=== PATIENT | female | born 1980 | race African-American/Black ===

== ENCOUNTER 2017-03-30 15:30 | Emergency (ER) | payer OTHER ==
[~2017-03-30] VITALS: Ht 165.1 cm; Wt 59.0 kg
[2017-03-30 15:42] VITALS: BP 119/69
--- NOTE | 2017-03-30 15:54 | ED.ADGEN ---
Past Medical History Past Medical History: Fibromyalgia, Seizure, Other Additional Past Medical Histor: VERTIGO, ECTOPIC Past Surgical History: Tonsillectomy Additional Past Surgical Histo: LEEP, adnoidectomy Alcohol Use: None Drug Use: None Adult General Chief Complaint Chief Complaint: HEADACHE HPI HPI Patient is a 37 year old woman, history of vertigo, fibromyalgia, seasonal allergies, who presents to the emergency department with a complaint of several days of nausea, diarrhea, occasional vomiting, nasal congestion, sore throat, nonproductive cough, ear pain, occasional "crusty stuff" from her eyes when she wakes up in the morning and headache. Patient states that she began one episode of diarrhea, then developed the other symptoms concurrently. She states that she has been using Flonase at home over the past several days, and took ibuprofen this morning without relief. She denies any vertiginous type symptoms , any weakness, numbness or tingling, any injuries, any fevers or chills. Also complaining of mild low back pain that occasionally radiates into her legs, but no difficulties with bowel or bladder control, states she has experienced similar symptoms with sciatica previously. Denies any sick contacts, any travel or exposure. Afebrile in the emergency department, last use ibuprofen about 3 hours ago. Review of Systems Review of Systems Constitutional: Denies fever or chills. [] Eyes: Denies change in visual acuity. [] HENT: Nasal congestion, sore throat, bilateral ear pain, right greater than left. Respiratory: Cough that is nonproductive, no shortness of breath. Cardiovascular: Denies chest pain or edema. [] GI: Denies abdominal pain, nausea, occasional vomiting, no bloody stools, episodic loose brown stool. [] : Denies dysuria. [] Musculoskeletal: Low back pain, no joint pain. Integument: Denies rash. [] Neurologic: Denies focal weakness or sensory changes. [] Headache. Endocrine: Denies polyuria or polydipsia. [] Lymphatic: Denies swollen glands. [] Psychiatric: Denies depression or anxiety. [] Current Medications Current Medications Current Medications Medications (Trade) Dose Ordered Sig/Kevin Start Time Stop Time Status Last Admin Dose Admin Benzonatate (Tessalon Perle) 100 mg 1X ONCE 03/30/17 16:00 03/30/17 16:01 DC 03/30/17 16:03 100 MG Ondansetron HCl (Zofran Odt) 4 mg 1X ONCE 03/30/17 16:00 03/30/17 16:01 DC 03/30/17 16:03 4 MG Allergies Allergies Allergies Coded Allergies Type Severity Reaction Last Updated Verified Penicillins Allergy Severe Rash 07/30/14 Yes codeine Allergy Intermediate rash, hallucinate 07/30/14 Yes ketorolac Allergy Intermediate 07/31/14 No morphine Allergy Intermediate rash, hallucinate 07/30/14 Yes prochlorperazine edisylate Allergy Intermediate anxiety 07/30/14 Yes prochlorperazine maleate Allergy Intermediate anxiety 07/30/14 Yes Physical Exam Physical Exam Constitutional: Well developed, well nourished, no acute distress, non-toxic appearance. [] HENT: Normocephalic, atraumatic, mild fluid levels noted behind bilateral TMs, there is no bulging, no drainage, external canal is normal, oropharynx moist, no oral exudates, patient was swelling of the turbinates bilaterally with white mucous noted, oropharynx is injected, no exudates identified. Eyes: PERRLA, EOMI, conjunctiva normal, no discharge. [] Neck: Normal range of motion, no tenderness, supple, no stridor. [] Cardiovascular:Heart rate regular rhythm, no murmur, S1, S2, no rubs or gallops. [] Lungs & Thorax: Bilateral breath sounds clear to auscultation , no wheezing, rhonchi, rales. No chest wall crepitus or tenderness. [] Abdomen: Bowel sounds normal, soft, no rebound, rigidity, no guarding, no tenderness, no masses, no pulsatile masses. [] Skin: Warm, dry, no erythema, no rash. [] Back: No tenderness, no CVA tenderness. [] Extremities: No tenderness, no cyanosis, no clubbing, ROM intact, no edema. Negative Homans sign. [] Neurologic: Alert and oriented X 3, normal motor function, normal sensory function, no focal deficits noted. [] Psychologic: Affect normal, judgement normal, mood normal. [] Current Patient Data Vital Signs Vital Signs Date Time Temp Pulse Resp B/P (MAP) Pulse Ox O2 Delivery O2 Flow Rate FiO2 03/30/17 15:42 98.4 95 18 119/69 (86) 100 Room Air 98.4 Lab Values Laboratory Tests Test 03/30/17 15:38 Urine Collection Type Unknown Urine Color Yellow Urine Clarity Clear Urine pH 6.5 Urine Specific [place] 1.015 Urine Protein Negative mg/dL (NEG-TRACE) Urine Glucose (UA) Negative mg/dL (NEG) Urine Ketones (Stick) Negative mg/dL (NEG) Urine Blood Negative (NEG) Urine Nitrite Negative (NEG) Urine Bilirubin Negative (NEG) Urine Urobilinogen Dipstick 0.2 mg/dL (0.2 mg/dL) Urine Leukocyte Esterase Negative (NEG) Urine RBC Occ /HPF (0-2) Urine WBC 0 /HPF (0-4) Urine Squamous Epithelial Cells Few /LPF Urine Bacteria Few /HPF (0-FEW) Urine Mucus Mod /LPF Urine Test Negative (NEG) EKG EKG Not indicated. [] Radiology/Procedures Radiology/Procedures Not indicated. [] Course & Med Decision Making Course & Med Decision Making Pertinent Labs and Imaging studies reviewed. (See chart for details) Patient's history and examination is consistent with a viral illness. I did discuss this with patient, she is using Flonase and ibuprofen at home, encouraged her to continue use of both these medications, will administer Tessalon Perle and Zofran in the ED, patient also states that she does also have some constipation, importance of hydration and stay well-hydrated discussed. Pressey test negative, UA unremarkable, patient received a dose of Zofran and Tessalon Perle in the ED. Use of loratadine at bedtime, Tessalon Perle, Zofran as needed discussed, patient is agreeable this plan. She was a primary care provider with which she can follow-up is as a persist. We also discussed concerning symptoms that prompt return to the ED. Patient voiced understanding and agreement, discharged with prescription for Zofran, Tessalon Perle, and provided in, with plan and precautions as above. Dragon Disclaimer Dragon Disclaimer This electronic medical record was generated, in whole or in part, using a voice recognition dictation system. Departure Impression: Primary Impression: Viral infection Disposition: HOME, SELF-CARE Condition: IMPROVED Scripts Ondansetron Hcl (ZOFRAN) 4 Mg Tablet 1 TAB PO Q8HRS Y for NAUSEA, #15 TAB Prov: DINAA CORTEZ DO 03/30/17 Loratadine (LORATADINE) 10 Mg Tablet 1 TAB PO QHS Y for COUGH, #15 TAB 0 Refills Prov: DIANA CORTEZ DO 03/30/17 Benzonatate (TESSALON PERLE) 100 Mg Capsule 100 MG PO TID Y for COUGH, #12 CAP Prov: DIANA CORTEZ DO 03/30/17 DIANA CORTEZ DO Mar 30, 2017 15:54
[2017-03-30 15:56] LABS: BILIRUBIN,URINE NEGATIVE (NEG); GLUCOSE,URINE NEGATIVE (NEG); NITRITE,URINE NEGATIVE (NEG); PH,URINE 6.5; PROTEIN,URINE NEGATIVE (NEG-TRACE); UROBILINOGEN,URINE 0.2 mg/dL (0.2 mg/dL)
[2017-03-30] MEDS ORDERED: ONDANSETRON ODT 4 MG TAB.RAPDIS. PO ONE (16:00)
[2017-03-30] MEDS ORDERED: BENZONATATE 100 MG CAPSULE. PO ONE (16:00)
[2017-03-30 16:01] LABS: BACTERIA,URINE FEW /HPF (0-FEW); RBC,URINE OCC /HPF (0-2); SQUAMOUS EPITHELIAL CELL,UR FEW /LPF; WBC,URINE 0 /HPF (0-4)
[2017-03-30 16:10] LABS: NEG OBC UR NEG; POS OBC UR POS
[2017-03-30] MEDS ORDERED: ONDA4TAB7 PO (16:20)
[2017-03-30] MEDS ORDERED: LORA10TA3 PO (16:20)
[2017-03-30] MEDS ORDERED: BENZ100C PO (16:20)
== END 2017-03-30 16:45 | disposition home or self-care (01) ==
LOC: ER 15:30
DX: B34.9 Viral infection, unspecified (principal); R51 Headache; H92.03 Otalgia, bilateral; M54.5 Low back pain; M79.7 Fibromyalgia; Z88.0 Allergy status to penicillin; Z79.899 Other long term (current) drug therapy; Z88.5 Allergy status to narcotic agent; Z88.8 Allergy status to other drugs, medicaments and biological substances
CPT/HCPCS: 81001; 81025; 84703; 99284; Q0162

== ENCOUNTER 2018-08-11 16:43 | Emergency (ER) | payer SELFPAY ==
[~2018-08-11] VITALS: Ht 154.9 cm; Wt 68.0 kg
[~2018-08-11 16:43] MED LIST: BENZ100C PO; LORA10TA3 PO; ONDA4TAB7 PO
--- NOTE | 2018-08-11 17:22 | EKG ---
[facility] [address] [place] [address] Test Date: 2018-08-11 Test Time: 17:08:15 Pat Name: CORA BURRELL Department: Room: Gender: F Template Inspector: : 1980 Requested By: NASREEN RODRIGUEZ Order Number: [id number] Reading MD: Harvinder Narayan Measurements Intervals [place] Rate: 78 P: 48 MT: 194 QRS: 27 QRSD: 76 T: 17 QT: 370 QTc: 425 Interpretive Statements SINUS RHYTHM NORMAL ECG Electronically Signed On 08-12-2018 14:30:30 CLEAN ROOM ASSEMBLER by Harvinder Narayan
[2018-08-11] MEDS: IV NORMAL SALINE 1000ML BAG 1,000 ML IV SCH (17:32)
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
[2018-08-11 17:52] LABS: CALCIUM 9.3 mg/dL (8.5-10.1); CREATININE 0.8 mg/dL (0.6-1.0); GFR 98.2; POTASSIUM 3.8 mmol/L (3.5-5.1)
[2018-08-11 17:59] LABS: ALBUMIN 3.9 g/dL (3.4-5.0); TOTAL BILIRUBIN 0.2 mg/dL (0.2-1.0); TOTAL PROTEIN 7.8 g/dL (6.4-8.2)
[2018-08-11 18:06] LABS: BASO % 0 % (0-3); EOS # 0.3 x10^3/uL (0.0-0.7); EOS % 3 % (0-3); HEMOGLOBIN 13.4 g/dL (12.0-15.5); LYMPH # 3.3 x10^3/uL (1.0-4.8); LYMPH % 35 % (24-48); MEAN CORPUSCULAR HEMOGLOBIN 32 pg (25-35); MEAN CORPUSCULAR HGB CONC 35 g/dL (31-37); MEAN CORPUSCULAR VOLUME 91 fL (79-100); MONO # 0.5 x10^3/uL (0.0-1.1); MONO % 5 % (0-9); NEUT # 5.2 x10^3uL (1.8-7.7); NEUT % 56 % (31-73); PLATELET COUNT 313 x10^3/uL (140-400); RED BLOOD COUNT 4.27 x10^6/uL (3.50-5.40); RED CELL DISTRIBUTION WIDTH 13.6 % (11.5-14.5); WHITE BLOOD COUNT 9.3 x10^3/uL (4.0-11.0)
[2018-08-11] MEDS: fentaNYL PF VIAL 100 MCG/2 ML VIAL IV ONE (18:57)
[2018-08-11] MEDS: ORPHENADRINE CITRATE 60 MG/2 ML VIAL. IV ONE (19:17)
[2018-08-11] MEDS ORDERED: TRAM50TA PO (19:29)
[2018-08-11] MEDS ORDERED: ORPH100T PO (19:29)
[2018-08-11] MEDS ORDERED: DICL50TA4 PO (19:29)
[2018-08-11 19:30] VITALS: BP 120/72
--- NOTE | 2018-08-11 19:39 | RAD ---
PORTABLE CHEST 1V dated 08/11/2018 6:27 PM. Comparison: None. Clinical Indication: ER PATIENT. ATRAUMATIC CHEST PAIN UPON INSPIRATION. PAIN BETWEEN THE SHOULDER BLADES. DECREASED RANGE OF OMTION OF UPPER EXTREMITIES. NO PRIORS. Findings: Single upright portable exam performed. Heart and mediastinal contours are within normal limits. Lungs are clear without focal consolidation. Vascular interstitium within normal limits. No pleural effusion or pneumothorax. Impression: Negative portable chest. Electronically signed by: Jeronimo Stephens MD (08/11/2018 7:35 PM) [facility]
--- NOTE | 2018-08-11 19:39 | RAD ---
3 views thoracic spine dated 08/11/2018. No comparison available. Clinical data indication: Pain after injury. FINDINGS: 3 views thoracic spine show normal sagittal alignment. Vertebral body heights are maintained. No paraspinous soft tissue abnormality. IMPRESSION: No acute radiographic abnormality. Electronically signed by: Jeronimo Stephens MD (08/11/2018 7:36 PM) [facility]
== END 2018-08-11 19:50 | disposition home or self-care (01) ==
LOC: ER 16:43
DX: M54.6 Pain in thoracic spine (principal); M62.830 Muscle spasm of back; R07.89 Other chest pain; Z90.89 Acquired absence of other organs; Z88.0 Allergy status to penicillin; Z88.5 Allergy status to narcotic agent; Z88.8 Allergy status to other drugs, medicaments and biological substances
CPT/HCPCS: 36415; 71045; 72072; 80053; 81025; 83735; 85025; 85379; 93005; 96374; 96375; 99285; J2360; J3010; J7030

== ENCOUNTER 2019-07-13 23:33 | Emergency (ER) | payer SELFPAY ==
[~2019-07-13] VITALS: Ht 154.9 cm; Wt 68.0 kg
[~2019-07-13 23:33] MED LIST changes: +DICL50TA4 PO; +ORPH100T PO; +TRAM50TA PO
[2019-07-14 00:23] VITALS: BP 112/71
--- NOTE | 2019-07-14 00:54 | PHYS DOC ---
Past Medical History Past Medical History: Fibromyalgia, Seizure, Other Additional Past Medical Histor: VERTIGO, ECTOPIC Past Surgical History: Tonsillectomy Additional Past Surgical Histo: LEEP, adnoidectomy Alcohol Use: None Drug Use: None Adult General Chief Complaint Chief Complaint: COUGH HPI HPI 39-year-old female presents to the emergency place or chills, bodyaches, cough, headache, hoarse voice, sore throat. She states symptoms been ongoing since Wednesday. She states she's used TheraFlu, ibuprofen without relief. Everone. N onproductive cough. Nothing makes her symptoms worse, nothing major symptoms better. She denies any abdominal pain, nausea, vomiting. All other ROS negative unless documented in HPI Review of Systems Review of Systems See Above Allergies Allergies Allergies Coded Allergies Type Severity Reaction Last Updated Verified Penicillins Allergy Severe Rash 07/30/14 Yes codeine Allergy Intermediate rash, hallucinate 07/30/14 Yes ketorolac Allergy Intermediate 07/31/14 No morphine Allergy Intermediate rash, hallucinate 07/30/14 Yes prochlorperazine edisylate Allergy Intermediate anxiety 07/30/14 Yes prochlorperazine maleate Allergy Intermediate anxiety 07/30/14 Yes Physical Exam Physical Exam See Above Constitutional: Well developed, well nourished, no acute distress, non-toxic appearance. [] HENT: Normocephalic, atraumatic, bilateral external ears normal, oropharynx moist/red, no oral exudates, nose normal. [] Eyes: PERRLA, EOMI, conjunctiva normal, no discharge. [] Neck: Normal range of motion, no tenderness, supple, no stridor. [] Cardiovascular:Heart rate regular rhythm, no murmur [] Lungs & Thorax: Bilateral breath sounds clear to auscultation [] Abdomen: Bowel sounds normal, soft, no tenderness, no masses, no pulsatile ma sses. [] Skin: Warm, dry, no erythema, no rash. [] Extremities: No tenderness, no cyanosis, no clubbing, ROM intact, no edema. [] Neurologic: Alert and oriented X 3, no focal deficits noted. [] Psychologic: Affect normal, judgement normal, mood normal. [] Current Patient Data Vital Signs Vital Signs Date Time Temp Pulse Resp B/P (MAP) Pulse Ox O2 Delivery O2 Flow Rate FiO2 07/14/19 00:23 98.9 70 14 112/71 (85) 98 Room Air 98.9 EKG EKG [] Radiology/Procedures Radiology/Procedures [] Course & Med Decision Making Course & Med Decision Making Pertinent Labs and Imaging studies reviewed. (See chart for details) []39-year-old female presents to the emergency place or chills, bodyaches, cough, headache, hoarse voice, sore throat. She states symptoms been ongoing since Wednesday. She states she's used TheraFlu, ibuprofen without relief. Everone. Nonproductive cough. Nothing makes her symptoms worse, nothing major symptoms better. She denies any abdominal pain, nausea, vomiting. Discussed with patient, plans to use [id number] medications, no plans for any antibiotic therapy at this time this is likely viral in nature. Dragon Disclaimer Dragon Disclaimer This electronic medical record was generated, in whole or in part, using a voice recognition dictation system. Departure Departure Impression: Primary Impression: Congestion of nasal sinus Additional Impression: Cough Disposition: 01 HOME, SELF-CARE Condition: STABLE Referrals: NO PCP (PCP) Patient Instructions: Upper Respiratory Infection, Adult, [id number] Additional Instructions: Recommend follow up with PCP 3 - 5 days Return to the ER with worsening symptoms, intractable pain, fever, altered mental status Tylenol/Motrin as needed for pain No antibiotics at this time likely all viral in nature Problem Qualifiers ANJANA ROY MD Jul 14, 2019 00:54
== END 2019-07-14 01:01 | disposition home or self-care (01) ==
LOC: ER 23:33
DX: R09.81 Nasal congestion (principal); R05 Cough; R51 Headache; R49.0 Dysphonia; J02.9 Acute pharyngitis, unspecified; Z90.89 Acquired absence of other organs; Z88.0 Allergy status to penicillin; Z88.5 Allergy status to narcotic agent; Z88.8 Allergy status to other drugs, medicaments and biological substances
CPT/HCPCS: 99281

== ENCOUNTER 2019-09-28 20:23 | Emergency (ER) | payer SELFPAY ==
[~2019-09-28] VITALS: Ht 154.9 cm; Wt 74.8 kg
[2019-09-28 21:20] VITALS: BP 123/76
[2019-09-28 21:51] LABS: BILIRUBIN,URINE NEGATIVE (NEG); CLARITY,URINE CLEAR; COLOR,URINE YELLOW; NITRITE,URINE NEGATIVE (NEG); PROTEIN,URINE NEGATIVE (NEG-TRACE)
[2019-09-28 21:55] LABS: BACTERIA,URINE FEW /HPF (0-FEW); RBC,URINE OCC /HPF (0-2); SQUAMOUS EPITHELIAL CELL,UR MOD /LPF; WBC,URINE OCC /HPF (0-4)
[2019-09-28] MEDS ORDERED: ORPH100T PO (22:48)
[2019-09-28] MEDS ORDERED: IBUP-1007 PO (22:48)
--- NOTE | 2019-09-28 22:48 | PHYS DOC ---
Past Medical History Past Medical History: Fibromyalgia, Seizure, Other Additional Past Medical Histor: VERTIGO, ECTOPIC (DIANNE BOSS APRN) Past Surgical History: Tonsillectomy Additional Past Surgical Histo: LEEP, adnoidectomy (DIANNE BOSS APRN) Alcohol Use: None Drug Use: None (DIANNE BOSS APRN) Attending Signature I have participated in the care of this patient and I have reviewed and agree with all pertinent clinical information above including history, exam, and recommendations. (ANJANA ROY MD) Adult General Chief Complaint Chief Complaint: TOE PROBLEM HPI HPI Patient is a 39 year old female who presents with states that couple days ago she was walking out of a grocery store when she tripped over a metal piece that was sticking up in the doorway. States she stubbed her right fourth toe. She states that she caught herself but it dayo her whole right side. States she's been taking an old muscle relaxer and ibuprofen and using ice in Epsom salts but she still very sore on her right side. She complains of right inner knee pain, right foot pain, right hip pain. Patient rates her pain a 7 out of 10. (DIANNE BOSS APRN) Review of Systems Review of Systems Musculoskeletal: Denies back pain. Right foot, toes and hip joint pain [] All other systems were reviewed and found to be within normal limits, except as documented in this note. (DIANNE BOSS APRN) Current Medications Current Medications Current Medications Medications (Trade) Dose Ordered Sig/Kevin Start Time Stop Time Status Last Admin Dose Admin Ibuprofen (Motrin) 800 mg 1X ONCE 09/28/19 23:00 09/28/19 23:01 DC 09/28/19 23:06 800 MG (ANJANA ROY MD) Allergies Allergies Allergies Coded Allergies Type Severity Reaction Last Updated Verified Penicillins Allergy Severe Rash 07/30/14 Yes codeine Allergy Intermediate rash, hallucinate 07/30/14 Yes ketorolac Allergy Intermediate 07/31/14 No morphine Allergy Intermediate rash, hallucinate 07/30/14 Yes prochlorperazine edisylate Allergy Intermediate anxiety 07/30/14 Yes prochlorperazine maleate Allergy Intermediate anxiety 07/30/14 Yes (ANJANA ROY MD) Physical Exam Physical Exam Constitutional: Well developed, well nourished, no acute distress, non-toxic appearance. [] HENT: Normocephalic, atraumatic, bilateral external ears normal, oropharynx moist, no oral exudates, nose normal. [] Eyes: PERRLA, EOMI, conjunctiva normal, no discharge. [] Neck: Normal range of motion, no tenderness, supple, no stridor. [] Cardiovascular:Heart rate regular rhythm, no murmur [] Lungs & Thorax: Bilateral breath sounds clear to auscultation [] Abdomen: Bowel sounds normal, soft, no tenderness, no masses, no pulsatile masses. [] Skin: Warm, dry, no erythema, no rash. [] Back: No tenderness, no CVA tenderness. [] Extremities: Right 2--4 toes, right dorsal foot tenderness, no cyanosis, no clubbing, ROM intact, no edema. [] Neurologic: Alert and oriented X 3, normal motor function, normal sensory function, no focal deficits noted. [] Psychologic: Affect normal, judgement normal, mood normal. [] (DIANNE BOSS APRN) Current Patient Data Vital Signs Vital Signs Date Time Temp Pulse Resp B/P (MAP) Pulse Ox O2 Delivery O2 Flow Rate FiO2 09/28/19 21:20 98.3 85 15 123/76 (92) 98 Room Air 98.3 (ANJANA ROY MD) Lab Values Laboratory Tests Test 09/28/19 21:31 09/28/19 21:37 Urine Collection Type Unknown Urine Color Yellow Urine Clarity Clear Urine pH 6.0 Urine Specific [place] >=1.030 Urine Protein Negative mg/dL (NEG-TRACE) Urine Glucose (UA) Negative mg/dL (NEG) Urine Ketones (Stick) Negative mg/dL (NEG) Urine Blood Negative (NEG) Urine Nitrite Negative (NEG) Urine Bilirubin Negative (NEG) Urine Urobilinogen Dipstick 1.0 mg/dL (0.2 mg/dL) Urine Leukocyte Esterase Negative (NEG) Urine RBC Occ /HPF (0-2) Urine WBC Occ /HPF (0-4) Urine Squamous Epithelial Cells Mod /LPF Urine Bacteria Few /HPF (0-FEW) Urine Mucus Mod /LPF POC Urine HCG, Qualitative Hcg negative (Negative) (ANJANA ROY MD) EKG EKG [] (DIANNE BOSS APRN) Radiology/Procedures Radiology/Procedures [] (DIANNE BOSS APRN) Course & Med Decision Making Course & Med Decision Making Ambulatory with a steady gait. Alert and oriented. No deformity to the patient's right foot and right toes. Tenderness to the second through fourth toe. Tenderness to the dorsal foot. Tenderness to the right medial knee. No deformity or bruising or swelling to the knee, foot or toes. Patient states that her right hip hurts when she goes to walk. She denies any radiation of pain. States she is just very sore. Skin pink warm and dry. Pedal pulses are present. No swelling to any joints or extremities. No bruising to any joints or extremities. No laxity in any joints. Can wigle toe but it is very painful. Denies numbness or tingling, skin color changes or temperature changes. No weakness in any extr emity. Xrays read by Dr Roy as no acute findings. Patient is given a Post op shoe. (DIANNE BOSS APRN) Dragon Disclaimer Dragon Disclaimer This electronic medical record was generated, in whole or in part, using a voice recognition dictation system. (DIANNE BOSS APRN) Departure Departure Impression: Primary Impression: Foot pain, right Additional Impressions: Hip pain, right Toe pain, right Disposition: 01 HOME, SELF-CARE Condition: STABLE Referrals: NO PCP (PCP) Patient Instructions: Contusion, [id number], Muscle Strain, [id number] Additional Instructions: Follow up with primary care provider. Take medications as prescribed. Scripts Orphenadrine Citrate (ORPHENADRINE CITRATE) 100 Mg Tablet.er 1 TAB PO BID, #20 TAB Prov: DIANNE BOSS APRN 09/28/19 Ibuprofen (IBUPROFEN) 600 Mg Tablet 600 MG PO PRN Q6HRS PRN for INFLAMMATION, #20 TAB Prov: DIANNE BOSS APRN 09/28/19 Problem Qualifiers DIANNE BOSS APRN Sep 28, 2019 22:48 ANJANA ROY MD Sep 29, 2019 07:32
[2019-09-28] MEDS ORDERED: IBUPROFEN 400 MG TABLET. PO ONE (23:00)
--- NOTE | 2019-09-28 23:44 | RAD ---
Study: HIP RIGHT 2V WITH PELVIS Indication: Mechanical fall. Comparison: None. Findings: No acute fracture seen at either hip or throughout the pelvis. Alignment is maintained. No suspicious abnormality seen to involve the visualized lumbar spine. No radiographic evidence of a hip joint effusion. Impression: No acute osseous abnormality. Electronically signed by: FILEMON HUGO MD (09/28/2019 11:41 PM) [facility]
--- NOTE | 2019-09-28 23:47 | RAD ---
4 views right knee HISTORY: Pain status post fall AP lateral oblique and sunrise views The visualized osseous structures appear normal. IMPRESSION: No acute findings. End impression Three views right foot AP lateral oblique Clinical History: Comparison: None. Findings: The visualized osseous structures appear normal. Impression: No acute findings. Electronically signed by: Waqar Holcomb III, MD (09/28/2019 11:44 PM) [facility]
--- NOTE | 2019-09-28 23:47 | RAD ---
4 views right knee HISTORY: Pain status post fall AP lateral oblique and sunrise views The visualized osseous structures appear normal. IMPRESSION: No acute findings. End impression Three views right foot AP lateral oblique Clinical History: Comparison: None. Findings: The visualized osseous structures appear normal. Impression: No acute findings. Electronically signed by: Waqar Holcomb III, MD (09/28/2019 11:44 PM) [facility]
== END 2019-09-28 23:17 | disposition home or self-care (01) ==
LOC: ER 20:23
DX: M79.671 Pain in right foot (principal); M25.551 Pain in right hip; M79.674 Pain in right toe(s); M25.561 Pain in right knee; M79.7 Fibromyalgia; Z90.89 Acquired absence of other organs; Z98.890 Other specified postprocedural states; Z88.0 Allergy status to penicillin; Z88.5 Allergy status to narcotic agent; Z88.6 Allergy status to analgesic agent; Z88.8 Allergy status to other drugs, medicaments and biological substances
CPT/HCPCS: 73502; 73564; 73630; 81001; 81025; 99285